=== PATIENT | male | born 1990 | race African-American/Black ===

== ENCOUNTER 2020-07-29 10:47 | Emergency (ER) | payer OTHER ==
[~2020-07-29] VITALS: Ht 172.7 cm; Wt 101.6 kg
[2020-07-29 12:05] VITALS: BP 115/87; TEMP 98.4
== END 2020-07-29 12:08 | disposition home or self-care (01) ==
LOC: ED 10:47
DX: T63.461A Toxic effect of venom of wasps, accidental (unintentional), initial encounter (principal); T78.40XA Allergy, unspecified, initial encounter; Y92.89 Other specified places as the place of occurrence of the external cause
CPT/HCPCS: 96372; 99283; J1100; J1200